=== PATIENT | female | born 1990 | race African-American/Black ===

== ENCOUNTER 2023-09-06 09:59 | Emergency (ER) | payer SELFPAY ==
[2023-09-06] MEDS ORDERED: Lidocaine 1% MPF 2 ML VIAL ONE (10:42)
[2023-09-06] MEDS ORDERED: cefTRIAXone (ROCEPHIN) 500 MG VIAL ONE (10:42)
[2023-09-06 11:42] LABS: Bacteria/HPF None Seen HPF (None Seen); Bilirubin Negative (Negative); Blood, Urine 1+ (Negative); CAUTI Indications for Culture Pelvic or flank pain; Clarity Clear (Clear); Glucose, Urine (Dipstick) Normal (Negative); Ketone, Urine Negative (Negative); Leukocyte Negative Leu/uL (Negative); Nitrite Negative (Negative); Protein, Urine (Dipstick) 10 mg/dL (Neg-Trace); RBC/HPF 0-3 HPF (0-3); Specific Gravity, Urine 1.023 (1.002-1.036); Urobilinogen Normal mg/dL (Less than 2); WBC/HPF 0-3 HPF (0-3)
[2023-09-06 11:44] LABS: Urine Culture Reflex No No
[2023-09-06 14:10] LABS: Chlam.trachomatis by PCR,Urine Not Detected (NotDetected); GC N.gonorrhoeae PCR,UrineVOID Not Detected (NotDetected)
== END 2023-09-06 11:15 | disposition home or self-care (01) ==
LOC: ERS 09:59
DX: N89.8 Other specified noninflammatory disorders of vagina (principal); I10 Essential (primary) hypertension; Z55.6 Problems related to health literacy; Z75.3 Unavailability and inaccessibility of health-care facilities
CPT/HCPCS: 81001; 87480; 87491; 87510; 87591; 87660; 96372; 99283; J0696